=== PATIENT | female | born 1970 | race Caucasian/White ===

== ENCOUNTER 2017-01-15 11:13 | Outpatient (CLI) | payer OTHER ==
[2017-01-15 12:16] LABS: eGFR (African) > 60; eGFR (Non-African) > 60
== END 2017-01-15 11:14 ==
LOC: LAB 11:13
PROVIDERS: ATTEND Physician Assistant
DX: I10 Essential (primary) hypertension (principal); Z13.6 Encounter for screening for cardiovascular disorders
CPT/HCPCS: 36415; 80053; 80061

== ENCOUNTER 2017-08-06 16:09 | Outpatient (CLI) | payer OTHER ==
[2017-08-06 17:03] LABS: eGFR (African) > 60; eGFR (Non-African) > 60
== END 2017-08-06 16:15 ==
LOC: LAB 16:09
PROVIDERS: ATTEND Physician Assistant
DX: R00.2 Palpitations (principal)
CPT/HCPCS: 36415; 80053

== ENCOUNTER 2018-01-30 15:13 | Emergency (ER) | payer OTHER ==
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
[2018-01-30] MEDS ORDERED: ORPHENADRINE CITRATE 60 MG/2ML IM ONE (16:24)
[2018-01-30] MEDS ORDERED: KETOROLAC TROMETHAMINE 60 MG/2 ML VIAL IM ONE (16:24)
[2018-01-30] MEDS ORDERED: KETOROLAC TROMETHAMINE 60 MG/2 ML VIAL ONE (16:24)
[2018-01-30] MEDS ORDERED: ORPHENADRINE CITRATE 60 MG/2ML ONE (16:24)
--- NOTE | 2018-01-30 17:38 | Diagnostic Imaging Report ---
<p>Your browser does not support iframes.</p> MICHAEL MENDEZ [facility] [id number] [facility] [address] [address] Report Submission Date: Jan 30, 2018 4:17:01 PM CDT Patient Study Name: JANAK MASTERSON Date: Jan 30, 2018 3:51:05 PM CDT Modality Type: DX Gender: F Description: SPINE : 68 Institution: [facility] Physician: MICHAEL MENDEZ Three-view lumbar spine CLINICAL HISTORY: Low back pain. FINDINGS: Examination lumbar spine in AP, lateral and lateral coned-down views of the lumbosacral junction demonstrates degenerative changes with narrowing of the L2- 3 disc space with osteophyte formation consistent with degenerative disc disease. Pedicles are intact and the paravertebral soft tissues are within normal limits. There is no evident fracture. IMPRESSION: Spondylosis. No fracture. Electronically signed on Jan 30, 2018 4:17:01 PM CDT by: José FREEMAN
[2018-01-30 18:00] VITALS: BP 132/71
== END 2018-01-30 16:47 | disposition home or self-care (01) ==
LOC: ED 15:13
DX: M54.5 Low back pain (principal); G89.29 Other chronic pain
CPT/HCPCS: 72100; J2360; 96372; 99284

== ENCOUNTER 2018-11-22 09:24 | Outpatient (CLI) | payer OTHER ==
[2018-11-22 10:04] LABS: HDL 31 mg/dL (>40); eGFR (Non-African) > 60
== END 2018-11-22 09:26 ==
LOC: LAB 09:24
PROVIDERS: ATTEND Family Medicine
DX: I10 Essential (primary) hypertension (principal)
CPT/HCPCS: 36415; 80053; 80061